=== PATIENT | male | born 1945 | race Caucasian/White ===

== ENCOUNTER 2024-03-01 11:11 | Outpatient (AMB) | payer OTHER, SELFPAY ==
--- NOTE | 2024-03-01 11:18 | MHC.OFFVIS ---
Vital Signs 03/01/24 11:27 Height 5 ft 10 in Weight 185 lb BMI 26.5 Intake Visit Reasons: New Pt - right shoulder pain Intake Note: Steven is a 78 year old male who presents with complaints of intermittent discomfort along the lateral aspect of his right shoulder. The patient states that he recently aggravated his shoulder while working out. He has modified his workout exercises. He states that the modifications have helped his discomfort significantly. He denies any weakness in his right shoulder. He did undergo left shoulder surgery several years ago. He reports minimal discomfort in his left shoulder. Allergies No Known Allergies Allergy (Verified 03/01/24 11:26) Medication List - Last Reconciled 03/01/24 by Arthur Griffin MD amlodipine 2.5 mg PO DAILY atorvastatin 40 mg PO DAILY levothyroxine 150 mcg PO DAILY losartan 100 mg PO DAILY tamsulosin 0.8 mg PO DAILY Physical Exam Vital Signs: BMI result Body Mass Index 26.5 Const Other: Well-nourished well-developed very friendly male awake alert and oriented x3 in no acute distress Extrem Other: Bilateral upper extremity examination shows good capillary refill, no skin lesions noted, normal sensation light touch Right shoulder examination shows full range motion when compared to his left shoulder, 4+ out of 5 strength with supraspinatus testing, positive impingement signs, tenderness over his acromioclavicular joint, no instability Results Reviewed Results Reviewed: X-rays of the patient's right shoulder taken today show severe acromioclavicular joint narrowing, a type 2 acromion, no acute bony abnormalities Assessment & Plan Assessment & Plan (1) Right shoulder pain: Code(s): M25.511 - Pain in right shoulder Category: Medical Plan Mr. Costello presents with intermittent right shoulder discomfort due to impingement syndrome. I had a lengthy discussion with the patient regarding the treatment options. At this point the patient's symptoms are tolerable to him. We will hold off on a cortisone injection. He will continue with his activity modifications. He will follow up with me on an as-needed basis should his symptoms worsen in any way. Feel free to call me at any time should questions regarding his orthopedic management arise. I spent 20 minutes in reviewing the patient's records and imaging studies, seeing the patient and documenting in the medical record. Orders: Orders XR shoulder RT min 2V Today M25.511 - Pain in right shoulder Coding Level of Care Code New Pt Level 3 (22482) Complex EM visit Add On G2211 Diagnoses Right shoulder pain M25.511
[2024-03-01 11:27] VITALS: BMI 26.5
== END 2024-03-01 11:51 | disposition home or self-care (01) ==
PROVIDERS: PCP Internal Medicine; Visit Provider Orthopaedic Surgery
DX: M25.511 Pain in right shoulder (principal)
CPT/HCPCS: 99203

== ENCOUNTER 2024-03-01 12:03 | Outpatient (REF) | payer MEDICARE, SELFPAY ==
--- NOTE | ~2024-03-01 | XR_ITS ---
EXAMINATION: XR SHOULDER RIGHT 2 VIEWS CLINICAL INFORMATION: M25.511 - Pain in right shoulder. COMPARISON: None available. TECHNIQUE: AP neutral and transscapular Y views of the right shoulder. FINDINGS: No acute fracture or dislocation. Moderate acromioclavicular and glenohumeral osteoarthritis. No concerning lytic or blastic osseous lesion. No abnormal soft tissue calcification. XR/XR shoulder RT min 2V IMPRESSION: Moderate acromioclavicular and glenohumeral osteoarthritis. Electronically signed by: Dharmesh Rodriguez MD 04/27/2024 12:12 PM JANI TAYLOR
== END 2024-03-01 12:04 | disposition home or self-care (01) ==
LOC: HO.HOSX 12:03
PROVIDERS: Visit Provider Orthopaedic Surgery
DX: M75.41 Impingement syndrome of right shoulder (principal)
CPT/HCPCS: 73030; 99202